=== PATIENT | female | born 1995 | race African-American/Black ===

== ENCOUNTER 2019-02-22 23:24 | Emergency (ER) | payer SELFPAY ==
[~2019-02-22] VITALS: Ht 152.4 cm; Wt 52.2 kg
[2019-02-22 23:40] VITALS: BP 146/72
== END 2019-02-23 02:50 | disposition left against medical advice (07) ==
LOC: EDBD 23:24 → ER 23:35
DX: N93.9 Abnormal uterine and vaginal bleeding, unspecified (principal); Z53.21 Procedure and treatment not carried out due to patient leaving prior to being seen by health care provider

== ENCOUNTER 2020-01-13 05:58 | Inpatient (IN) | payer MEDICAID ==
[~2020-01-13] VITALS: Ht 152.4 cm; Wt 55.3 kg
[2020-01-13] MEDS ORDERED: LACTATED RINGER'S 1,000 ML IV ONE (06:13)
[2020-01-13] MEDS ORDERED: TERBUTALINE SULFATE 1 MG/ML 1ML VIAL SC SCH (06:15)
[2020-01-13] MEDS ORDERED: TERBUTALINE SULFATE 1 MG/ML 1ML VIAL SC ONE (06:17)
[2020-01-13 07:57] LABS: Basophils # (auto) 0 uL; Eosinophils # (auto) 0 uL; Hemoglobin 8.6 g/dL (12.2-16.2); Mean Corpuscular Volume 78.5 fL (80.0-100.0); Monocytes # (auto) 0.9 uL; Neutrophils # (auto) 10.1 uL; White Blood Cell 11.6 10^3/uL (4.4-10.8)
[2020-01-13 07:59] LABS: Urine Bacteria FEW /hpf (None Seen); Urine Blood 2+ /uL (Negative); Urine Mucus FEW (None Seen); Urine Specific Gravity 1.019 (1.001-1.035); Urine WBC 15 /hpf (0 - 5)
[2020-01-13 07:59] LABS: Basophils % (auto) 0.2 % (0.0-2.0); Hematocrit 26.7 % (36.0-46.0); Lymphocytes # (auto) 0.5 uL; Lymphocytes % (auto) 4.6 % (10.0-50.0); Mean Corpuscular Hemoglobin 25.3 pg (28.0-32.0); Mean Corpuscular Hgb Conc. 32.3 g/dL (32.0-36.0); Monocytes % (auto) 7.8 % (0.0-12.0); Neutrophils % (auto) 87.4 % (37.0-80.0); Platelet Count (auto) 152 10^3/uL (140-450); Red Cell Distribution Width 14.9 % (11.8-14.3)
[2020-01-13] MEDS ORDERED: LACT. RINGERS/OXYTOCIN 20UNITS 1,000 ML IV SCH (08:17)
[2020-01-13] MEDS ORDERED: DERMOPLAST 60ML BOTTLE TOP PRN (08:30)
[2020-01-13] MEDS ORDERED: PHISODERM TOP SOLN 240ML BTL TOP PRN (08:30)
[2020-01-13] MEDS ORDERED: WITCH HAZEL-GLYCERIN PAD TOP PRN (08:30)
[2020-01-13] MEDS ORDERED: ACETAMINOPHEN 325 MG TAB PO PRN (08:30)
[2020-01-13 08:31] LABS: Albumin 2.3 g/dL (3.4-5.0); Calcium 7.9 mg/dL (8.5-10.1)
[2020-01-13 08:37] LABS: BUN/Creatinine Ratio 5.2; Bilirubin, Total 0.5 mg/dL (0.2-1.0); Total Protein 6.4 g/dL (6.4-8.2)
[2020-01-13 08:37] LABS: Alcohol, Urine < 3.0 mg/dL (0-5); Amphetamine Screen, Urine NEGATIVE (NEGATIVE); Barbiturate Scree,Urine NEGATIVE (NEGATIVE); Benzodiazephine Screen, Urine NEGATIVE (NEGATIVE); Cannabinoid Screen, Urine NEGATIVE (NEGATIVE); Cocaine Screen, Urine NEGATIVE (NEGATIVE); Opiate Scree,Urine NEGATIVE (NEGATIVE); Phencyclidine Screen, Urine NEGATIVE (NEGATIVE)
[2020-01-13 08:42] LABS: Potassium 2.8 mmol/L (3.5-5.1)
[2020-01-13 08:45] LABS: INR 1.01 (0.9-1.15); Partial Thromboplastin Time 33.1 sec (23.64-32.05)
[2020-01-13] MEDS: IBUPROFEN 600 MG TAB PO PRN ×2 (09:03→16:41)
[2020-01-13 09:33] VITALS: BP 114/72
[2020-01-13] MEDS ORDERED: BETAMETHASONE ACET (6MG/ML) 5ML VIAL IM SCH (10:00)
[2020-01-13] MEDS ORDERED: POTASSIUM CHL 20 Meq TABLET PO ONE (12:15)
[2020-01-13] MEDS ORDERED: POTASSIUM CHLORIDE 40 MEQ in D5W/LACTATED RINGERS 1,000 ML IV SCH (12:15)
[2020-01-13 12:33] VITALS: BP 103/63
[2020-01-13] MEDS: POTASSIUM CHL 20MEQ/100ML 100 ML IV SCH ×2 (14:30→16:43)
[2020-01-13 16:30] VITALS: BP 98/57
[2020-01-13 19:11] VITALS: BP 101/50
[2020-01-13 23:00] VITALS: BP 99/61
[2020-01-14 03:30] VITALS: BP 94/50
[2020-01-14] MEDS ORDERED: PREN-96 PO (04:17)
[2020-01-14 06:45] VITALS: BP 100/63
== END 2020-01-14 08:10 | disposition home or self-care (01) | DRG 560 ==
LOC: LDRP 05:58 → OBSVTOIN 05:58 → LDRP 09:06
PROVIDERS: ADMIT Specialist; ATTEND Specialist
PROC: 10E0XZZ Delivery of Products of Conception, External Approach (ICD-10-PCS; principal; 2020-01-13)
DX: O62.3 Precipitate labor (principal); O60.10X0 Preterm labor with preterm delivery, unspecified trimester, not applicable or unspecified; O34.219 Maternal care for unspecified type scar from previous cesarean delivery; Z37.0 Single live birth; Z3A.33 33 weeks gestation of pregnancy
CPT/HCPCS: 36415; 59025; 59612; 80053; 80307; 81001; 81002; 84112; 85025; 85610; 85730; 86592; 86703; 86762; 86850; 86900; 86901; 87340; 96372; G0378